=== PATIENT | male | born 1990 | race Two or more races ===

== ENCOUNTER 2016-10-06 16:52 | Emergency (ER) | payer OTHER ==
[~2016-10-06] VITALS: Ht 167.6 cm; Wt 65.8 kg
[2016-10-06] MEDS ORDERED: IBUPROFEN600 MG ORAL (17:14)
[2016-10-06] MEDS ORDERED: ROBAXIN-750750 MG PO (17:14)
[2016-10-06 17:26] VITALS: BP 105/67
[2016-10-06 17:30] VITALS: BP 105/67
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
== END 2016-10-06 17:30 | disposition home or self-care (01) ==
LOC: EMR 17:12
DX: S63.501A Unspecified sprain of right wrist, initial encounter (principal); S16.1XXA Strain of muscle, fascia and tendon at neck level, initial encounter; V43.52XA Car driver injured in collision with other type car in traffic accident, initial encounter; Y92.410 Unspecified street and highway as the place of occurrence of the external cause
CPT/HCPCS: 29260; 99284